=== PATIENT | male | born 1960 | race Caucasian/White ===

== ENCOUNTER 2020-12-12 23:20 | Emergency (ER) | payer OTHER ==
[~2020-12-12 23:20] MED LIST: ASPIRIN81 MG PO; FLOMAX 0.4 MG0.4 MG PO; LISINOPRIL10 MG PO; METOPROLOL TART25 MG PO; ZOFRAN4 MG PO
[2020-12-13] MEDS ORDERED: HYDROCODON-ACE1 EAC4 PO (00:04)
[2020-12-13] MEDS ORDERED: LODINE CAP 300300 MG PO (00:12)
[2020-12-13] MEDS ORDERED: VALACYCLOVIR1000 MG PO (00:12)
== END 2020-12-13 00:50 | disposition home or self-care (01) ==
LOC: ER1 23:20
DX: B02.9 Zoster without complications (principal); I10 Essential (primary) hypertension; E78.5 Hyperlipidemia, unspecified
CPT/HCPCS: 96372; 99282; J1885

== ENCOUNTER → 2021-10-27 | Outpatient (CLI) | payer OTHER ==
[~2021-10-27] MED LIST changes: +HYDROCODON-ACE1 EAC4 PO; +LODINE CAP 300300 MG PO; +VALACYCLOVIR1000 MG PO
== END ==
LOC: KOH-I 15:40
DX: S22.43XK Multiple fractures of ribs, bilateral, subsequent encounter for fracture with nonunion (principal); S27.0XXD Traumatic pneumothorax, subsequent encounter; I25.83 Coronary atherosclerosis due to lipid rich plaque; R01.1 Cardiac murmur, unspecified; R09.89 Other specified symptoms and signs involving the circulatory and respiratory systems; J90 Pleural effusion, not elsewhere classified
CPT/HCPCS: 71045; 71101

== ENCOUNTER → 2021-10-31 | Outpatient (CLI) | payer OTHER | LOC: ECHO 12:51 | DX: S22.43XK Multiple fractures of ribs, bilateral, subsequent encounter for fracture with nonunion (principal); S27.0XXD Traumatic pneumothorax, subsequent encounter; I25.83 Coronary atherosclerosis due to lipid rich plaque; R01.1 Cardiac murmur, unspecified; R09.89 Other specified symptoms and signs involving the circulatory and respiratory systems | CPT/HCPCS: ECHO; 93306; 93880 ==